=== PATIENT | male | born 1955 | race Caucasian/White ===

== ENCOUNTER 2016-12-15 18:06 | Emergency (ER) | payer SELFPAY ==
[~2016-12-15] VITALS: Ht 172.7 cm; Wt 79.5 kg
[~2016-12-15 18:06] MED LIST: ASCORBIC ACID500 M3 PO; ATIVAN0.5 MG PO; CALCIUM500 M1 PO; GELATIN650 M2 PO; GOOD NEIGHBOR500 M2 PO; MAGNESIUM250 M1 PO; NITROGLYCERIN0.4 M1 SL; ODOR FREE GARL1 EAC1 PO; PAXIL20 M1 PO; PHARMASSURE SA160 MG PO; QUALITY CHOICE200 MG PO; RANITIDINE HCL150 MG PO; ST. JOHN'S WOR150 M1 PO; TOPCARE ASPIRIN81 M1 PO; TOPROL XL 25MG25 MG PO
[2016-12-15] MEDS ORDERED: KLONOPIN 1MG1 MG PO (18:19)
[2016-12-15] MEDS ORDERED: BUSPAR 30MG30 MG/TAB PO (18:21)
[2016-12-15] MEDS ORDERED: SERTRALINE50 MG PO (18:22)
[2016-12-15] MEDS ORDERED: PAROXETINE HYDR10 MG PO (18:23)
[2016-12-15] MEDS ORDERED: FISH OIL1 IU PO (18:28)
[2016-12-15 19:44] VITALS: BP 140/80
== END 2016-12-15 19:44 | disposition home or self-care (01) ==
LOC: ED 18:06
DX: H53.2 Diplopia (principal); F41.9 Anxiety disorder, unspecified; F32.9 Major depressive disorder, single episode, unspecified

== ENCOUNTER → 2019-07-23 | Outpatient (CLI) | payer SELFPAY ==
[~2019-07-23] VITALS: Ht 172.7 cm; Wt 79.5 kg
[~2019-07-23] MED LIST changes: +BUSPAR 30MG30 MG/TAB PO; +FISH OIL1 IU PO; +KLONOPIN 1MG1 MG PO; +PAROXETINE HYDR10 MG PO; +SERTRALINE50 MG PO
[2019-07-23 18:04] LABS: EOS # 0.3 (0.04-0.40); HEMATOCRIT 40.8 % (42.0-52.0); HEMOGLOBIN 13.9 g/dL (13.5-18.0); LYMPH# 1.6 (1.50-4.00); MEAN CELL VOLUME 93 fl (78-100); MEAN CORPUSCULAR HEMOGLOBIN 32 pg (27-31); MEAN CORPUSCULAR HGB CONC 34 g/dL (33-37); MONO # 0.5 (0.20-0.80); NEU # 2.8 (1.40-6.50); PLATELET COUNT 198 K/mm3 (130-400); RED BLOOD COUNT 4.41 M/mm3 (4.20-5.60); RED CELL DISTRIBUTION WIDTH 12.5 % (11.5-14.5); WHITE BLOOD COUNT 5.2 K/mm3 (4.8-10.8)
[2019-07-23 18:06] LABS: EOS % 5.2 % (0.0-4.0)
[2019-07-23 18:51] LABS: D-DIMER 3.91 mg/L FEU (0.15-0.50)
[2019-07-23 20:00] VITALS: BP 153/86
[2019-07-23 20:15] VITALS: BP 153/86
[2019-07-23 20:18] VITALS: BP 150/80
== END ==
LOC: AMSURD 17:04 → RAD 17:04
PROVIDERS: Physician Assistant
DX: M79.89 Other specified soft tissue disorders (principal)
CPT/HCPCS: J1650

== ENCOUNTER → 2019-07-24 | Outpatient (CLI) | payer SELFPAY ==
[2019-07-23 20:18] VITALS: BP 150/80
== END ==
LOC: RAD 08:13
DX: R60.0 Localized edema (principal); R79.89 Other specified abnormal findings of blood chemistry

== ENCOUNTER → 2021-04-20 | Outpatient (CLI) | payer MEDICARE, MEDICAID ==
[~2021-04-20] MED LIST changes: +ARIPIPRAZOLE2 MG PO; +BUSPIRONE HYDRO10 MG PO; +REXULTI1 MG PO; +VENLAFAXINE HCL75 M3 PO
[2021-04-20 16:27] LABS: EOS # 0.17 K/mm3 (0.04-0.40); EOS % 3.4 % (0.0-4.0); HEMATOCRIT 45.6 % (42.0-52.0); HEMOGLOBIN 15.6 g/dL (13.5-18.0); LYMPH# 1.24 K/mm3 (1.50-4.00); MEAN CELL VOLUME 92 fl (78-100); MEAN CORPUSCULAR HEMOGLOBIN 31 pg (27-31); MEAN CORPUSCULAR HGB CONC 34 g/dL (33-37); MEAN PLATELET VOLUME 11.5 fl (7.4-10.4); MONO # 0.46 K/mm3 (0.20-0.80); NEU # 3.07 K/mm3 (1.40-6.50); PLATELET COUNT 187 K/mm3 (130-400); RED BLOOD COUNT 4.98 M/mm3 (4.20-5.60); RED CELL DISTRIBUTION WIDTH 12.7 % (11.5-14.5); WHITE BLOOD COUNT 4.9 K/mm3 (4.8-10.8)
[2021-04-20 16:39] LABS: ALBUMIN 4.3 g/dL (3.4-4.8); POTASSIUM 4.1 mmol/L (3.5-5.1)
[2021-04-20 16:40] LABS: CALCIUM 8.9 mg/dL (8.3-10.5)
[2021-04-20 16:42] LABS: TOTAL PROTEIN 7.6 g/dL (6.2-8.1)
[2021-04-20 16:44] LABS: TOTAL BILIRUBIN 0.9 mg/dL (0.2-1.2)
[2021-04-20 17:44] LABS: ERYTHROCYTE SEDIMENTATION RATE 7 mm/hr (0-20)
[2021-04-21 00:39] LABS: FOLLICLE STIMULATING HORMONE 4.7 mIU/mL (1.0-12.0); LUTENIZING HORMONE 3.4 mIU/mL (0.6-12.1); PROLACTIN AMS 4.7 ng/mL (3.5-19.4); TESTOSTERONE 293 ng/dL (221-716)
[2021-04-27 15:45] LABS: VITAMIN B1 218 nmol/L (70-180)
== END ==
LOC: LAB 15:47
PROVIDERS: Internal Medicine
DX: G93.41 Metabolic encephalopathy (principal); K90.9 Intestinal malabsorption, unspecified; E78.2 Mixed hyperlipidemia; R97.8 Other abnormal tumor markers; F52.21 Male erectile disorder

== ENCOUNTER 2021-07-15 19:18 | Emergency (ER) | payer MEDICARE, MEDICAID ==
[~2021-07-15] VITALS: Ht 172.7 cm; Wt 88.3 kg
[2021-07-15 22:00] VITALS: BP 135/78
== END 2021-07-15 22:00 | disposition home or self-care (01) ==
LOC: ED 19:18
DX: G47.00 Insomnia, unspecified (principal); R41.82 Altered mental status, unspecified; Z28.310 Unvaccinated for COVID-19

== ENCOUNTER → 2021-09-08 | Outpatient (CLI) | payer MEDICARE, MEDICAID ==
[2021-09-08 15:57] LABS: ALBUMIN 4.3 g/dL (3.4-4.8); POTASSIUM 3.8 mmol/L (3.5-5.1)
[2021-09-08 15:58] LABS: CALCIUM 9.1 mg/dL (8.3-10.5)
[2021-09-08 15:59] LABS: TOTAL PROTEIN 7.4 g/dL (6.2-8.1)
[2021-09-08 16:01] LABS: TOTAL BILIRUBIN 0.9 mg/dL (0.2-1.2)
== END ==
LOC: LAB 15:14
PROVIDERS: Internal Medicine
DX: K57.30 Diverticulosis of large intestine without perforation or abscess without bleeding (principal); K76.9 Liver disease, unspecified; E27.8 Other specified disorders of adrenal gland; N40.0 Benign prostatic hyperplasia without lower urinary tract symptoms; K90.9 Intestinal malabsorption, unspecified; U07.1 COVID-19; G93.41 Metabolic encephalopathy; F52.21 Male erectile disorder; E78.2 Mixed hyperlipidemia; R97.8 Other abnormal tumor markers
CPT/HCPCS: Q9967

== ENCOUNTER → 2021-11-27 | Outpatient (CLI) | payer MEDICARE, MEDICAID | LOC: LAB 13:14 | DX: H93.A2 Pulsatile tinnitus, left ear (principal) ==

== ENCOUNTER → 2022-04-07 | Outpatient (CLI) | payer MEDICARE, MEDICAID | LOC: LAB 11:04 | DX: J02.9 Acute pharyngitis, unspecified (principal); Z20.822 Contact with and (suspected) exposure to COVID-19 ==

== ENCOUNTER → 2022-04-25 | Outpatient (CLI) | payer MEDICARE, MEDICAID ==
[2022-04-25 15:18] LABS: EOS # 0.13 K/mm3 (0.04-0.40); EOS % 2.5 % (0.0-4.0); HEMATOCRIT 43.1 % (42.0-52.0); HEMOGLOBIN 14.7 g/dL (13.5-18.0); LYMPH# 1.55 K/mm3 (1.50-4.00); MEAN CELL VOLUME 92 fl (78-100); MEAN CORPUSCULAR HEMOGLOBIN 31 pg (27-31); MEAN CORPUSCULAR HGB CONC 34 g/dL (33-37); MEAN PLATELET VOLUME 10.6 fl (7.4-10.4); MONO # 0.44 K/mm3 (0.20-0.80); NEU # 3.09 K/mm3 (1.40-6.50); PLATELET COUNT 192 K/mm3 (130-400); RED CELL DISTRIBUTION WIDTH 12.1 % (11.5-14.5); WHITE BLOOD COUNT 5.2 K/mm3 (4.8-10.8)
[2022-04-25 15:27] LABS: ALBUMIN 4.3 g/dL (3.4-4.8); SODIUM 143 mmol/L (136-145)
[2022-04-25 15:30] LABS: GLUCOSE 113 mg/dL (75-110); TOTAL PROTEIN 7.4 g/dL (6.2-8.1)
[2022-04-25 15:31] LABS: CARBON DIOXIDE 27 mmol/L (23-31)
[2022-04-25 15:32] LABS: TOTAL BILIRUBIN 0.8 mg/dL (0.2-1.2)
[2022-04-25 15:35] LABS: AST-SGOT 23 U/L (5-34)
[2022-04-25 15:36] LABS: ALT/SGPT 31 U/L (0-55)
[2022-04-25 15:47] LABS: TROPONIN-I < 0.030 ng/mL (<0.030)
[2022-04-25 16:36] LABS: ERYTHROCYTE SEDIMENTATION RATE 11 mm/hr (0-20)
== END ==
LOC: LAB 14:49 → RAD 14:49
PROVIDERS: Internal Medicine
DX: R07.89 Other chest pain (principal)

== ENCOUNTER → 2022-11-16 | Outpatient (CLI) | payer MEDICARE, MEDICAID | LOC: RAD 16:54 | DX: M54.51 Vertebrogenic low back pain (principal); M54.6 Pain in thoracic spine ==

== ENCOUNTER 2023-01-09 08:00 | Outpatient (RCR) | payer MEDICARE, MEDICAID | END 2023-02-07 | disposition home or self-care (01) | LOC: PT | DX: M51.36 Other intervertebral disc degeneration, lumbar region (principal) ==

== ENCOUNTER → 2023-03-30 | Outpatient (CLI) | payer MEDICARE, MEDICAID | LOC: LAB 13:14 | DX: R97.20 Elevated prostate specific antigen [PSA] (principal); R35.1 Nocturia ==

== ENCOUNTER → 2023-10-29 | Outpatient (CLI) | payer MEDICARE, MEDICAID ==
[~2023-10-29] MED LIST changes: +AMOXICILLIN AND1 TA2 PO
[2023-10-29 16:54] LABS: BASO # 0.01 K/mm3 (0.02-0.10); EOS # 0.15 K/mm3 (0.04-0.40); HEMATOCRIT 42.9 % (42.0-52.0); HEMOGLOBIN 14.9 g/dL (13.5-18.0); LYMPH# 1.39 K/mm3 (1.50-4.00); MEAN CELL VOLUME 90 fl (78-100); MEAN CORPUSCULAR HEMOGLOBIN 31 pg (27-31); MEAN CORPUSCULAR HGB CONC 35 g/dL (33-37); MEAN PLATELET VOLUME 10.6 fl (7.4-10.4); MONO # 0.43 K/mm3 (0.20-0.80); PLATELET COUNT 187 K/mm3 (130-400); RED BLOOD COUNT 4.77 M/mm3 (4.20-5.60); RED CELL DISTRIBUTION WIDTH 12.3 % (11.5-14.5)
[2023-10-29 16:56] LABS: ALBUMIN 4.4 g/dL (3.4-4.8); SODIUM 143 mmol/L (136-145)
[2023-10-29 16:57] LABS: CALCIUM 9.2 mg/dL (8.3-10.5)
[2023-10-29 16:58] LABS: GLUCOSE 86 mg/dL (75-110); TOTAL PROTEIN 7.3 g/dL (6.2-8.1)
[2023-10-29 16:59] LABS: CARBON DIOXIDE 28 mmol/L (23-31)
[2023-10-29 17:00] LABS: TOTAL BILIRUBIN 0.9 mg/dL (0.2-1.2)
[2023-10-29 17:03] LABS: AST-SGOT 13 U/L (5-34)
[2023-10-29 17:05] LABS: ALT/SGPT 11 U/L (0-55)
[2023-10-29 17:11] LABS: TROPONIN-I < 0.030 ng/mL (0.00-0.033)
[2023-10-29 17:27] LABS: D-DIMER 0.95 mg/L FEU (0.15-0.50)
== END ==
LOC: LAB 16:33
PROVIDERS: Internal Medicine
DX: R07.89 Other chest pain (principal); R06.00 Dyspnea, unspecified

== ENCOUNTER → 2023-10-31 | Outpatient (CLI) | payer MEDICARE, OTHER ==
[~2023-10-31] MED LIST changes: +Iohexol 350 - 100 ML VIAL IV ONE
== END ==
LOC: RAD 14:45
DX: R07.89 Other chest pain (principal); E04.1 Nontoxic single thyroid nodule
CPT/HCPCS: Q9967

== ENCOUNTER → 2023-11-08 | Outpatient (CLI) | payer MEDICARE, OTHER ==
[~2023-11-08] VITALS: Ht 170.2 cm; Wt 85.3 kg
[~2023-11-08] MED LIST changes: -Iohexol 350 - 100 ML VIAL IV ONE; +Regadenoson 0.08 MG/ML 5 ML VIAL IV SCH
== END ==
LOC: CARDREHAB 08:51
DX: R07.89 Other chest pain (principal)
CPT/HCPCS: A9500; J2785

== ENCOUNTER → 2023-11-25 | Outpatient (REF) | payer MEDICARE, OTHER ==
[~2023-11-25] MED LIST changes: -Regadenoson 0.08 MG/ML 5 ML VIAL IV SCH
== END ==
LOC: LAB 08:04
DX: U07.1 COVID-19 (principal)

== ENCOUNTER → 2024-03-20 | Outpatient (CLI) | payer MEDICARE, OTHER | LOC: LAB 15:36 | DX: R97.8 Other abnormal tumor markers (principal) ==

== ENCOUNTER → 2024-04-14 | Outpatient (CLI) | payer MEDICARE, OTHER | LOC: RAD 13:15 | DX: M47.816 Spondylosis without myelopathy or radiculopathy, lumbar region (principal); M16.12 Unilateral primary osteoarthritis, left hip ==

== ENCOUNTER → 2024-05-22 | Outpatient (REF) | payer MEDICARE, OTHER | LOC: LAB 09:34 | DX: J02.9 Acute pharyngitis, unspecified (principal) ==

== ENCOUNTER → 2024-06-29 | Outpatient (CLI) | payer MEDICARE, OTHER ==
[2024-06-29 15:55] LABS: EOS # 0.09 K/mm3 (0.04-0.40); EOS % 1.8 % (0.0-4.0); HEMATOCRIT 41.6 % (42.0-52.0); HEMOGLOBIN 14.1 g/dL (13.5-18.0); LYMPH# 1.27 K/mm3 (1.50-4.00); MEAN CELL VOLUME 92 fl (78-100); MEAN CORPUSCULAR HEMOGLOBIN 31 pg (27-31); MEAN CORPUSCULAR HGB CONC 34 g/dL (33-37); MEAN PLATELET VOLUME 10.1 fl (7.4-10.4); MONO # 0.46 K/mm3 (0.20-0.80); NEU # 3.23 K/mm3 (1.40-6.50); PLATELET COUNT 170 K/mm3 (130-400); RED BLOOD COUNT 4.52 M/mm3 (4.20-5.60); RED CELL DISTRIBUTION WIDTH 12.5 % (11.5-14.5); WHITE BLOOD COUNT 5.1 K/mm3 (4.8-10.8)
[2024-06-29 16:08] LABS: ALBUMIN 4.1 g/dL (3.4-4.8)
[2024-06-29 16:10] LABS: CALCIUM 9.1 mg/dL (8.3-10.5)
[2024-06-29 16:11] LABS: TOTAL PROTEIN 7.4 g/dL (6.2-8.1)
[2024-06-29 16:13] LABS: TOTAL BILIRUBIN 0.7 mg/dL (0.2-1.2)
[2024-06-29 16:18] LABS: MAGNESIUM 2.22 mg/dL (1.60-2.60)
== END ==
LOC: LAB 15:24
PROVIDERS: Internal Medicine
DX: K90.9 Intestinal malabsorption, unspecified (principal); F32.A Depression, unspecified; E78.2 Mixed hyperlipidemia